=== PATIENT | female | born 1990 | race Caucasian/White ===

== ENCOUNTER 2017-03-04 08:20 | Outpatient (CLI) | payer BC | END 2017-03-04 20:09 | disposition home or self-care (01) | LOC: SRD 08:20 | PROVIDERS: ATTEND Pediatrics | DX: Z34.90 Encounter for supervision of normal pregnancy, unspecified, unspecified trimester (principal); K85.90 Acute pancreatitis without necrosis or infection, unspecified | CPT/HCPCS: 76700-TC; 76856-TC ==